=== PATIENT | male | born 1950 | race Caucasian/White ===

== ENCOUNTER → 2024-07-08 07:04 | Outpatient (REF) | payer OTHER, SELFPAY | LOC: MRI 07:04 | PROVIDERS: ATTENDING PHYSICIAN Pain Medicine Interventional Pain Medicine; FAMILY PHYSICIAN Internal Medicine | DX: M54.16 Radiculopathy, lumbar region (principal) | CPT/HCPCS: 72148 ==

== ENCOUNTER → 2024-07-26 07:59 | Outpatient (REF) | payer OTHER, SELFPAY | LOC: RCS 07:59 | PROVIDERS: ATTENDING PHYSICIAN Student in an Organized Health Care Education/Training Program; FAMILY PHYSICIAN Internal Medicine | DX: Z01.818 Encounter for other preprocedural examination (principal) | CPT/HCPCS: 93005 ==

== ENCOUNTER → 2024-11-16 12:32 | Outpatient (REF) | payer OTHER, SELFPAY | LOC: PAVMRI 12:32 | PROVIDERS: ATTENDING PHYSICIAN Pain Medicine Interventional Pain Medicine; FAMILY PHYSICIAN Internal Medicine | DX: M54.12 Radiculopathy, cervical region (principal) | CPT/HCPCS: 72141 ==

== ENCOUNTER → 2025-03-21 08:27 | Outpatient (REF) | payer OTHER, SELFPAY | LOC: RCS 08:27 | PROVIDERS: ATTENDING PHYSICIAN Pain Medicine Interventional Pain Medicine; FAMILY PHYSICIAN Internal Medicine | DX: Z01.818 Encounter for other preprocedural examination (principal) | CPT/HCPCS: 93005 ==

== ENCOUNTER → 2025-08-17 11:16 | Outpatient (REF) | payer OTHER, SELFPAY | LOC: RCS 11:16 | PROVIDERS: ATTENDING PHYSICIAN Student in an Organized Health Care Education/Training Program; FAMILY PHYSICIAN Internal Medicine Geriatric Medicine | DX: Z01.818 Encounter for other preprocedural examination (principal) | CPT/HCPCS: 93005 ==

== ENCOUNTER 2025-09-01 06:08 | Day surgery (SDC) | payer OTHER, SELFPAY ==
[2025-09-01] VITALS (11 sets, daily range): BP systolic 123–155; BP diastolic 66–96; BMI 24.8
[2025-09-01] MEDS: CELEBREX 200 MG PO (06:59)
[2025-09-01] MEDS: NORMOSOL-R/PLASMALYTE-A 1000 IV (06:59)
[2025-09-01] MEDS: DILAUDID 0.5 MG IV ×2 (09:42→10:06)
[2025-09-01] MEDS: ROXICODONE 5 MG PO ×2 (11:03→11:53)
== END 2025-09-01 12:10 | disposition home or self-care (01) ==
LOC: SDS 06:08
PROVIDERS: ATTENDING PHYSICIAN Student in an Organized Health Care Education/Training Program
DX: M20.21 Hallux rigidus, right foot (principal)
CPT/HCPCS: 28750; C1713; C1776